=== PATIENT | female | born 1995 | race Caucasian/White ===

== ENCOUNTER → 2019-07-06 12:12 | Outpatient (CLI) | payer OTHER, SELFPAY ==
[2019-07-06 14:28] LABS: Urine N gonorrhoeae NOT DETECTED
[2019-07-06 14:33] LABS: Urine Chlamydia NOT DETECTED
== END ==
DX: Z11.3 Encounter for screening for infections with a predominantly sexual mode of transmission (principal)
CPT/HCPCS: 87491; 87591